=== PATIENT | female | born 1975 | race Caucasian/White ===

== ENCOUNTER 2019-01-28 13:56 | Emergency (ER) | payer OTHER ==
--- NOTE | 2019-01-28 14:28 | ER Document Report ---
ED Medical Screen (RME) - General Chief Complaint: Eye Problem Stated Complaint: RIGHT EYE PAIN Time Seen by Provider: 01/28/19 14:14 Mode of Arrival: Ambulatory Information source: Patient Notes: Patient is an otherwise healthy 43-year-old female presenting to the emergency department with sudden onset severe pain behind her right eye. Patient denies any trauma to this area. She states she was sitting at a computer doing work when this occurred. She then noticed a reddened area to the inner corner of her eye. She reports blurred vision. She denies any history of similar symptoms. Exam: Small subconjunctival hemorrhage at the 3 o'clock position. I have greeted and performed a rapid initial assessment of this patient. A comprehensive ED assessment and evaluation of the patient, analysis of test results and completion of the medical decision making process will be conducted by additional ED providers. I have specifically instructed the patient or family members with the patient to immediately return to any nursing staff should anything change in the patient's condition or with their chief complaint. This medical record was dictated with voice recognizing software. There may be grammatical, syntax errors that are unintended. TRAVEL OUTSIDE OF THE [place] IN LAST 30 DAYS: No - Related Data Allergies/Adverse Reactions: codeine Allergy (Verified 01/28/19 14:09) cyclobenzaprine [From Flexeril] Allergy (Verified 01/28/19 14:09) Past Medical History - Social History Chew tobacco use (# tins/day): No Frequency of alcohol use: None Drug Abuse: None Past Surgical History: Reports: Hx Hysterectomy Physical Exam - Vital signs Vitals: Temp Pulse Resp BP Pulse Ox 98.9 F 89 18 120/57 L 94 01/28/19 14:07 01/28/19 14:07 01/28/19 14:07 01/28/19 14:07 01/28/19 14:07 Course - Vital Signs Vital signs: Temp Pulse Resp BP Pulse Ox 98.9 F 89 18 120/57 L 94 01/28/19 14:07 01/28/19 14:07 01/28/19 14:07 01/28/19 14:07 01/28/19 14:07
--- NOTE | 2019-01-28 14:55 | RADIOLOGY REPORT (SQ) ---
EXAM DESCRIPTION: CT ORBIT/SELLA WITH COMPLETED DATE/TIME: 01/28/2019 2:42 pm REASON FOR STUDY: severe pain behind R eye, no trauma COMPARISON: None. TECHNIQUE: Post contrast images through the orbits windowed for bone and soft tissue. Additional co adina and sagittal reconstructed images reviewed. All images stored on PACS. All CT scanners at this facility use dose modulation, iterative reconstruction, and/or weight based d osing when appropriate to reduce radiation dose to as low as reasonably achievable (ALARA). [facility]: Dose Right [facility]: CareDose [facility]: Dose Right [facility]: Teradose 4D [facility]: [employer] CONTRAST TYPE AND DOSE: contrast/concentration: Isovue 350.00 mg/ml; Total Contrast Delivered: 50.0 ml; Total Saline Delivered: 50.0 ml RENAL FUNCTION: None required. The patient is less than 50 years old. RADIATION DOSE: CT Rad equipment meets quality standard of care and radiation dose reduction techniq ues were employed. CTDIvol: 30.4 mGy. DLP: 313 mGy-cm. . LIMITATIONS: None. FINDINGS: FACIAL BONES: No fracture or bone lesion. ORBITS: Intact. No fracture. Symmetric intact globes and retroorbital soft tissues. PARANASAL SINUSES: Clear. No significant mucosal thickening, mass or fluid. SOFT TISSUES: No mass or edema. No abnormal enhancement. No CT evidence of acute sinusitis. INFERIOR BRAIN: Limited view. No acute findings. OTHER: No other significant finding. IMPRESSION: NORMAL STUDY. TECHNICAL DOCUMENTATION: JOB ID: [id number] Quality ID # [id number]: Final reports with documentation of one or more dose reduction techniques (e.g., Au tomated exposure control, adjustment of the mA and/or kV according to patient size, use of iterative reconstruction technique) 2010 [employer]- All Rights Reserved Reading location - IP/workstation name: [email or web address]
[2019-01-28] MEDS ORDERED: TETRACAINE HCL 0.5% OPH SOLN 4 ML OD ONE (16:07)
--- NOTE | 2019-01-28 16:10 | ER Document Report ---
ED General - General Chief Complaint: Eye Problem Stated Complaint: RIGHT EYE PAIN Time Seen by Provider: 01/28/19 14:14 Primary Care Provider: MELISSA ZENG MD [ACTIVE STAFF] - Follow up tomorrow Mode of Arrival: Ambulatory Notes: Patient is a 43-year-old female who presents the emergency department with a chief complaint of a sudden sharp pain in her head and in her right eye. She states that she has had blurry vision in her right eye. She also states that she feels like there are needles in her eye. She denies any spots at this time. Patient was at work and this happened suddenly. TRAVEL OUTSIDE OF THE [place] IN LAST 30 DAYS: No - Related Data Allergies/Adverse Reactions: codeine Allergy (Verified 01/28/19 14:09) cyclobenzaprine [From Flexeril] Allergy (Verified 01/28/19 14:09) Past Medical History - General Information source: Patient - Social History Smoking Status: Never Smoker Chew tobacco use (# tins/day): No Frequency of alcohol use: None Drug Abuse: None Family History: Reviewed & Not Pertinent Patient has suicidal ideation: No Patient has homicidal ideation: No Past Surgical History: Reports: Hx Hysterectomy Review of Systems - Review of Systems Notes: REVIEW OF SYSTEMS: CONSTITUTIONAL : Denies recent illness. Denies recent unintentional weight loss. Denies fever, chills, or sweats. EENT: See HPI. CARDIOVASCULAR: Denies chest pain. RESPIRATORY: Denies shortness of breath, cough, congestion, difficulty breathing, or wheezing. GASTROINTESTINAL: Denies nausea, vomiting, and diarrhea. Denies abdominal pain. Denies constipation. GENITOURINARY: Denies difficulty urinating, burning, blood in urine, urgency or frequency. MUSCULOSKELETAL: Denies neck and back pain. Denies joint pain or swelling. SKIN: Denies rash, itchiness, or lesions HEMATOLOGIC : Denies easy bruising or bleeding. LYMPHATIC: Denies swollen, painful, enlarged glands. NEUROLOGICAL: Denies no numbness or tingling denies weakness. Denies headache. Denies altered mental status. Denies alteration in speech. PSYCHIATRIC: Denies stress, anxiety, alteration in sleep patterns, or depression. All other systems reviewed and negative. Physical Exam - Vital signs Vitals: Temp Pulse Resp BP Pulse Ox 98.9 F 89 18 120/57 L 94 01/28/19 14:07 01/28/19 14:07 01/28/19 14:07 01/28/19 14:07 01/28/19 14:07 - Notes Notes: PHYSICAL EXAMINATION: GENERAL: Appears well, healthy, well-nourished, no acute distress. HEAD: Normocephalic, atraumatic. EYES: PERRL, conjunctiva normal, all extraocular movements intact, sclera nonicteric, small bursted blood vessel to medial portion of right eye. ENT: Moist mucous membranes. NECK: Supple, no noticeable swelling, redness, rash. Normal range of motion. LUNGS: Equal breath sounds bilaterally and clear to auscultation. No wheezes rales or rhonchi. CARDIOVASCULAR: S1-S2, regular rate, regular rhythm. Radial pulses 2+, normal. ABDOMEN: Normoactive bowel sounds. Soft, nontender, no guarding, no rebound tenderness, and no masses palpated. EXTREMITIES: Normal strength and range of motion, no pitting or edema. No cyanosis. NEUROLOGICAL: Moves all extremities upon command. Strength 5/5 in all extremities. PSYCH: Normal mood, normal affect. SKIN: Warm, dry. No rash, lesions, ulcerations noted. Normal skin turgor. Course - Re-evaluation Re-evalutation: 01/28/19 17:16 Bedside ultrasound was done and optic nerve was visualized. No floating at optic nerve noted. Patient then noted that she felt like she had pressure in her ears and has felt "stuffed up" for the past few days. She also complains of sinus pressure. Patient has purulent drainage behind her left tympanic membrane. She will be started on Augmentin to also cover any sinus infection that may be causing her symptoms. There is a very low suspicion for globe rupture. The patient CT scan was unremarkable. No postorbital cellulitis. Tonometer readings were 14, 16, and 17. I have a very low suspicion for acute a ngle glaucoma. Follow-up precautions were given. Verbal discharge instructions were given to the patient. They verbalized understanding. They are stable for discharge. - Vital Signs Vital signs: Temp Pulse Resp BP Pulse Ox 98.6 F 63 16 149/98 H 98 01/28/19 17:51 01/28/19 17:51 01/28/19 17:51 01/28/19 17:51 01/28/19 17:51 Discharge - Discharge Clinical Impression: Blurry vision Left otitis media Qualifiers: Otitis media type: mucoid Chronicity: acute Qualified Code(s): H65.112 - Acute and subacute allergic otitis media (mucoid) (sanguinous) (serous), left ear Condition: Stable Disposition: HOME, SELF-CARE Additional Instructions: You were seen today in the emergency department for blurry vision. Your ocular pressures were normal. You can follow-up with ophthalmology tomorrow if you continue to have blurred vision. You have an ear infection. You are being prescribed antibiotics. Please finish all your antibiotics as prescribed. If you have worsening symptoms, please return to the emergency department. Prescriptions: Amox Tr/Potassium Clavulanate [Augmentin 875-125 mg Tablet] 1 tab PO BID #20 tablet Fluconazole [Diflucan] 150 mg PO ASDIR PRN #2 tablet PRN Reason: Referrals: MELISSA ZENG MD [ACTIVE STAFF] - Follow up tomorrow
[2019-01-28] MEDS ORDERED: AMOXICILLIN TRIHYD 250 MG CAPSULE PO ONE (17:22)
[2019-01-28] MEDS ORDERED: AMOXICILLIN TR/POT CLAVULANATE 500-125 MG TAB PO ONE (17:22)
[2019-01-28] MEDS ORDERED: FLUCONAZOLE 100 MG TABLET PO ONE (17:51)
[2019-01-28 17:52] VITALS: BP 149/98
== END 2019-01-28 17:56 | disposition home or self-care (01) ==
LOC: ER 13:56
DX: H65.112 Acute and subacute allergic otitis media (mucoid) (sanguinous) (serous), left ear (principal); H53.8 Other visual disturbances; H57.11 Ocular pain, right eye; R51 Headache; Z88.6 Allergy status to analgesic agent; Z90.710 Acquired absence of both cervix and uterus
CPT/HCPCS: 70481; J3490 ×2; 99283

== ENCOUNTER 2019-06-10 07:16 | Emergency (ER) | payer OTHER ==
[2019-06-10] MEDS ORDERED: KETOROLAC TROMETHAMINE INJ/PF 30 MG/1 ML SDV IV ONE (08:05)
[2019-06-10] MEDS ORDERED: NORMAL SALINE 1000 ML 1,000 ML IV ONE (08:05)
--- NOTE | 2019-06-10 08:07 | ER Document Report ---
ED General - General Chief Complaint: Flu Symptoms Stated Complaint: CHILLS,FEVER,BODY ACHES Primary Care Provider: ÁNGEL KELLER FNP-C [Primary Care Provider] - Follow up as needed Notes: 43-year-old female presents with cough fatigue generalized weakness congestion for about 3 days. It all happened when she was at a conference in [place] is been getting worse. This morning she fainted twice when standing up and felt very dizzy and sweaty and pale. Decreased hydration. Positive body aches and chills, positive headache and sore throat. Had flu vaccine. No ear pain. No hemoptysis or leg swelling. Intermittent subcostal chest pain earlier today as well as now resolved. Struve heart murmur no other issues. Bigeminy noted on monitor. Took DayQuil this morningafebrile in ED. TRAVEL OUTSIDE OF THE [place] IN LAST 30 DAYS: No - Related Data Allergies/Adverse Reactions: codeine Allergy (Verified 01/28/19 14:09) cyclobenzaprine [From Flexeril] Allergy (Verified 01/28/19 14:09) Past Medical History - Social History Smoking Status: Unknown if Ever Smoked Family History: Reviewed & Not Pertinent Past Surgical History: Reports: Hx Hysterectomy Review of Systems - Review of Systems Notes: REVIEW OF SYSTEMS GEN: Fever weakness ENT: Denies sore throat, nasal discharge, ear pain EYES: Denies blurry vision, eye pain, discharge CV: Chest pain RESP: Cough shortness of breath GI: Denies abdominal pain, nausea, vomiting, diarrhea MSK: Denies joint pain/swelling, edema, SKIN: Denies rash, skin lesions LYMPH: Denies swollen glands/lymph nodes NEURO: Denies headache, focal weakness or numbness, dizziness PSYCH: Denies depression, suicidal or homicidal ideation PHYSICAL EXAMINATION General: She does not feel well Head: Atraumatic, normocephalic ENT: Mouth normal, oropharynx moist, no exudates or tonsillar enlargement Eyes: Conjunctiva normal, pupils equal, lids normal Neck: No JVD, supple, no guarding CVS: Intermittent irregularity Resp: No resp distress, equal and normal breath sounds bilaterally GI: Nondistended, soft, no tenderness to palpation, no rebound or guarding Ext: No deformities, no edema, normal range of motion in upper and lower ext Back: No CVA or midline TTP Skin: No rash, warm Lymphatic: No lymphadeopathy noted Neuro: Awake, alert. Face symmetric. GCS 15. Physical Exam - Vital signs Vitals: Temp Pulse Resp BP Pulse Ox 98.0 F 60 16 91/59 L 98 06/10/19 07:23 06/10/19 07:23 06/10/19 07:23 06/10/19 07:23 06/10/19 07:23 Course - Re-evaluation Re-evalutation: 06/10/19 08:07 Viral symptoms versus sepsis along with dehydration and syncope Bigeminy on the monitor Good perfusion here in the ER. Afebrile will check flu sepsis labs and syncope work-up No evidence of head trauma. Will check mag and give mag, fluids and Toradol 06/10/19 09:36 Patient's vitals improved Her labs were normal including flu Slightly hypermagnesemic 06/10/19 11:15 . Work-up negative. Small breast mass otherwise CT negative. Patient informed of need for mammogram Patient is clinically stable and discharged I have discussed with the patient there likely diagnosis, aftercare plan, follow-up plans and my usual and customary return precautions. They verbalized understanding of this. - Vital Signs Vital signs: Temp Pulse Resp BP Pulse Ox 98.0 F 60 17 143/106 H 98 06/10/19 07:23 06/10/19 07:23 06/10/19 10:01 06/10/19 10:04 06/10/19 10:04 - Laboratory Result Diagrams: 06/10/19 07:43 06/10/19 07:43 Laboratory results interpreted by me: 06/10/19 06/10/19 07:40 07:43 Glucose 118 H POC Glucose 126 H Magnesium 2.4 H Discharge - Discharge Clinical Impression: Dehydration symptoms, Acute viral syndrome Condition: Good Disposition: HOME, SELF-CARE Instructions: Viral Syndrome ([facility]) Additional Instructions: EKG had a slight abnormal finding called bigeminy Please have this repeated with your primary care within 1 week Also: Incidentally noted small breast mass. Please get mammogram in the next month Prescriptions: Ibuprofen [Motrin 600 Mg Tablet] 600 mg PO TID #15 tablet Ondansetron [Zofran Odt 4 mg Tablet] 1 - 2 tab PO Q4H PRN #15 tab.rapdis PRN Reason: For Nausea/Vomiting Referrals: ÁNGEL KELLER, CONSTRUCTION TECH-C [Primary Care Provider] - Follow up as needed
[2019-06-10 08:21] LABS: ABSOLUTE LYMPHOCYTES (AUTO) 1.8 10^3/uL (0.5-4.7); ABSOLUTE MONOCYTES (AUTO) 0.7 10^3/uL (0.1-1.4); ABSOLUTE NEUT (AUTO) 4.9 10^3/uL (1.7-8.2); BASOPHILS % (AUTO) 0.3 % (0-2); EOSINOPHILS % (AUTO) 0.4 % (0-6); HEMOGLOBIN 13.6 g/dL (12.0-15.5); LYMPHOCYTES % (AUTO) 24.6 % (13-45); MEAN CORPUSCULAR HEMOGLOBIN 28.8 pg (27.0-33.4); MEAN CORPUSCULAR HGB CONC 33.9 g/dL (32.0-36.0); MEAN CORPUSCULAR VOLUME 85 fl (80-97); MONOCYTES % (AUTO) 8.8 % (3-13); PLATELET COUNT 194 10^3/uL (150-450); RED BLOOD COUNT 4.71 10^6/uL (3.72-5.28); RED CELL DISTRIBUTION WIDTH 13.7 % (11.5-14.0); SEGMENTED NEUTROPHILS % (AUTO) 65.9 % (42-78); TOTAL CELLS COUNTED % (AUTO) 100 %; WHITE BLOOD COUNT 7.5 10^3/uL (4.0-10.5)
--- NOTE | 2019-06-10 08:30 | RADIOLOGY REPORT (SQ) ---
EXAM DESCRIPTION: CHEST SINGLE VIEW COMPLETED DATE/TIME: 06/10/2019 8:20 am REASON FOR STUDY: cough COMPARISON: None. EXAM PARAMETERS: NUMBER OF VIEWS: One view. TECHNIQUE: Single frontal radiographic view of the chest acquired. RADIATION DOSE: NA LIMITATIONS: None. FINDINGS: LUNGS AND PLEURA: No opacities, masses or pneumothorax. No pleural effusion. MEDIASTINUM AND HILAR STRUCTURES: No masses. Contour normal. HEART AND VASCULAR STRUCTURES: Heart normal in size. Normal vasculature. BONES: No acute findings. HARDWARE: None in the chest. OTHER: No other significant finding. IMPRESSION: NO ACUTE RADIOGRAPHIC FINDING IN THE CHEST. TECHNICAL DOCUMENTATION: JOB ID: [id number] [employer]- All Rights Reserved Reading location - IP/workstation name: [email or web address]
[2019-06-10 08:35] LABS: ALKALINE PHOSPHATASE 95 U/L (38-126); ANION GAP 6 (5-19); ASPARTATE AMINO TRANSFERASE 25 U/L (14-36); BILIRUBIN,DIRECT 0.1 mg/dL (0.0-0.4); BILIRUBIN,TOTAL 0.4 mg/dL (0.2-1.3); BLOOD UREA NITROGEN 15 mg/dL (7-20); CARBON DIOXIDE 29 mmol/L (22-30); CHLORIDE 104 mmol/L (98-107); CREATINE KINASE 91 U/L (30-135); GLUCOSE 118 mg/dL (75-110); POTASSIUM 4.1 mmol/L (3.6-5.0); TOTAL PROTEIN 6.6 g/dL (6.3-8.2)
[2019-06-10 08:47] LABS: CREATINE KINASE MB 0.42 ng/mL (<4.55)
[2019-06-10 08:48] LABS: TROPONIN I < 0.012 ng/mL
[2019-06-10 09:13] LABS: A TYPE INFLUENZA AG NEGATIVE (NEGATIVE); B INFLUENZA AG NEGATIVE (NEGATIVE)
--- NOTE | 2019-06-10 09:16 | EKG REPORT ---
SEVERITY:- DEFECTIVE ECG - SINUS RHYTHM NONSPECIFIC ST-T CHANGES : Confirmed by: Mili Fitzgerald 10-Jun-2019 09:15:29
[2019-06-10 10:28] LABS: APPEARANCE,URINE CLEAR; BILIRUBIN,URINE NEGATIVE (NEGATIVE); COLOR,URINE YELLOW; GLUCOSE, URINE NEGATIVE (NEGATIVE); KETONES,URINE NEGATIVE (NEGATIVE); LEUKOCYTE ESTERASE,URINE NEGATIVE (NEGATIVE); NITRITE,URINE NEGATIVE (NEGATIVE); PROTEIN,URINE NEGATIVE (NEGATIVE); URINE SPECIFIC GRAVITY 1.008; UROBILINOGEN,URINE NEGATIVE mg/dL (<2.0)
--- NOTE | 2019-06-10 11:09 | RADIOLOGY REPORT (SQ) ---
EXAM DESCRIPTION: CTA CHEST COMPLETED DATE/TIME: 06/10/2019 10:36 am REASON FOR STUDY: PE COMPARISON: Comparison radiographs same date. TECHNIQUE: CT scan of the chest performed using helical scanning technique with dynamic intravenous contrast injection. Images reviewed with lung, soft tissue and bone windows. Reconstructed coronal and sagittal MPR images reviewed. Additional 3 dimensional post-processing performed to develop Maximal Intensity Projection images (MT P). All images stored on PACS. All CT scanners at this facility use dose modulation, iterative reconstruction, and/or weight based d osing when appropriate to reduce radiation dose to as low as reasonably achievable (ALARA). [facility]: Dose Right [facility]: CareDose [facility]: Dose Right [facility]: Teradose 4D [facility]: [employer] CONTRAST TYPE AND DOSE: contrast/concentration: Isovue 350.00 mg/ml; Total Contrast Delivered: 61.0 ml; Total Saline Delivered: 65.4 ml RENAL FUNCTION: GFR > 60. RADIATION DOSE: CT Rad equipment meets quality standard of care and radiation dose reduction techniq ues were employed. CTDIvol: 9.9 - 14.3 mGy. DLP: 535 mGy-cm. . LIMITATIONS: Mild motion artifact. FINDINGS: LUNGS AND PLEURA: Mild areas of dependent subsegmental atelectasis. Motion artifact. No gross nodules or masses or consolidating pneumonia or effusion. AORTA AND GREAT VESSELS: No evidence of aneurysm or dissection. Patent great vessel origins. HEART: No pericardial effusion. No significant coronary artery calcifications. PULMONARY ARTERIES: No central pulmonary embolus. Normal caliber pulmonary arteries. Segmental and subsegmental branches in the lower lobes particularly are not well assessed due to motion artifact. HILAR AND MEDIASTINAL STRUCTURES: No identified masses or abnormal nodes. HARDWARE: None in the chest. UPPER ABDOMEN: No significant findings. Limited exam. THYROID AND OTHER SOFT TISSUES: 1 cm mass in the lateral right breast. BONES: No acute or significant finding. 3D MIPS: Confirm above findings. OTHER: No other significant finding. IMPRESSION: 1. Allowing for motion, no pulmonary embolus. 2. No suspicious pulmonary infiltrates. 3. Small mass in the lateral right breast. Correlate with any recent mammography. Patient should be undergoing yearly screening mammograms. If no recent screening mammography to correlate, consider d iagnostic right mammography. COMMENT: Quality ID # [id number]: Final reports with documentation of one or more dose reduction techniques (e.g., Automated exposure control, adjustment of the mA and/or kV according to patient size, use of iterative reconstruction technique) TECHNICAL DOCUMENTATION: JOB ID: [id number] [employer]- All Rights Reserved Reading location - IP/workstation name: [email or web address]
[2019-06-10] MEDS ORDERED: NORMAL SALINE 1000 ML 1,000 ML IV STA (11:17)
[2019-06-10 12:50] VITALS: BP 125/92
== END 2019-06-10 12:50 | disposition home or self-care (01) ==
LOC: ER 07:16
DX: B34.9 Viral infection, unspecified (principal); E86.0 Dehydration; R55 Syncope and collapse; R50.9 Fever, unspecified; M79.10 Myalgia, unspecified site; Z88.6 Allergy status to analgesic agent; Z90.710 Acquired absence of both cervix and uterus
CPT/HCPCS: 93005; 99284; 96361; 96374; 36415; 87040; 82553; 82962; 82550; 83605; 83735; 85025; 80053; 81001; 84484; 87804; 71045; 71275; 93010; J1885; J7030

== ENCOUNTER → 2019-06-24 | Outpatient (CLI) | payer OTHER | LOC: OD 16:47 | PROVIDERS: ATTEND Physician Assistant | DX: I49.3 Ventricular premature depolarization (principal) | CPT/HCPCS: 36415; 83735; 84443 ==